=== PATIENT | male | born 1960 | race Caucasian/White ===

== ENCOUNTER 2024-06-26 13:31 | Emergency (ER) | payer MEDICARE ==
[~2024-06-26] VITALS: Ht 188 cm; Wt 131.5 kg
[~2024-06-26 13:31] MED LIST: CEPH500 PO; IBUP800 PO; OXYACE5T PO
[2024-06-26 14:09] VITALS: BP 136/91
[2024-06-26] MEDS ORDERED: CYCL10 PO (15:43)
[2024-06-26] MEDS ORDERED: Cyclobenzaprine HCl 10 MG Tab PO ONE (15:45)
[2024-06-26] MEDS ORDERED: OxyCODONE 5 mg/Acetamin 325 mg TABLET PO ONE (15:45)
[2024-06-26] MEDS ORDERED: Ketorolac Tromethamine 30mg Vial IM ONE (15:45)
== END 2024-06-26 16:17 | disposition home or self-care (01) ==
LOC: ER 13:31
DX: S39.012A Strain of muscle, fascia and tendon of lower back, initial encounter (principal); X58.XXXA Exposure to other specified factors, initial encounter; Z88.5 Allergy status to narcotic agent; Z79.899 Other long term (current) drug therapy
CPT/HCPCS: 96372; 99283-25; A9270; J1885

== ENCOUNTER 2024-07-14 16:20 | Emergency (ER) | payer MEDICARE ==
[~2024-07-14] VITALS: Ht 188 cm; Wt 131.5 kg
[~2024-07-14 16:20] MED LIST changes: +CYCL10 PO
[2024-07-14 17:16] LABS: BASOPHILS ABSOLUTE AUTO 0.07 K/mm3 (0.00-0.23); BASOPHILS PERCENT AUTO 1 % (0-2); EOSINOPHILS ABSOLUTE AUTO 0.21 K/mm3 (0.00-0.68); EOSINOPHILS PERCENT AUTO 2 % (0-6); Hematocrit 44.8 % (37.0-53.0); Hemoglobin 15.2 g/dL (13.5-17.5); IMMATURE GRAN ABSOLUTE AUTO 0.06 K/mm3 (0.00-0.10); IMMATURE GRAN PERCENT AUTO 1 % (0-1); LYMPHOCYTES ABSOLUTE AUTO 1.52 K/mm3 (0.84-5.20); LYMPHOCYTES PERCENT AUTO 13 % (21-46); MONOCYTES ABSOLUTE AUTO 0.85 K/mm3 (0.16-1.47); MONOCYTES PERCENT AUTO 7 % (4-13); Mean Corpuscular HGB 30.8 pg (26.0-34.0); Mean Corpuscular HGB Conc 33.9 g/dL (31.5-36.5); Mean Corpuscular Volume 91 fL (80-100); Mean Platelet Volume 9.8 fL (9.1-12.4); NEUTROPHILS ABSOLUTE AUTO 9.05 K/mm3 (1.96-9.15); NEUTROPHILS PERCENT AUTO 77 % (41-73); Platelet Count 166 K/mm3 (150-400); RDW Coefficient Variation 13.4 % (11.7-14.2); RDW Standard Deviation 44.7 fL (35.1-46.3); Red Blood Cell Count 4.94 M/mm3 (4.30-5.90); White Blood Cell Count 11.76 K/mm3 (4.00-11.30)
[2024-07-14 17:54] LABS: Source, Urine Clean Catch
[2024-07-14 18:01] LABS: Appearance, Urine Hazy (Clear); Bilirubin, Urine Neg (Neg); Blood, Urine 5+ (Neg); Color, Urine Yellow (P-Yellow); Glucose Qualitative, Urine Neg (Neg); Ketones, Urine Neg (Neg); Leukocyte Esterase, Urine Neg (Neg); Nitrite, Urine Neg (Neg); Protein, Urine 2+ (Neg); Specific Gravity, Urine 1.025 (1.003-1.022); Urobilinogen, Urine NORM (Normal)
[2024-07-14 18:08] LABS: Albumin, Blood 3.4 g/dL (3.4-5.0); Albumin/Globulin Ratio 0.8 (0.8-1.8); Bilirubin, Total 0.6 mg/dL (0.1-1.0); Bun/Creatinine Ratio 15.7 (12.0-20.0); Calcium, Blood 9.7 mg/dL (8.5-10.1); Creatinine, Blood 1.02 mg/dL (0.60-1.20); Globulin, Blood 4.1 g/dL (2.2-4.0); Potassium, Blood 4.1 mmol/L (3.5-5.5); Total Protein, Blood 7.5 g/dL (6.4-8.2)
[2024-07-14 18:10] LABS: Bacteria Few /hpf; Red Blood Cells, Urine 25-50 /hpf (0-2); Squamous Epithelial Cells Rare /hpf (Few)
[2024-07-14] MEDS ORDERED: Dicyclomine HCl 20 MG Tab PO ONE (21:30)
[2024-07-14] MEDS ORDERED: Lidocaine 4% 1 Patch TOP ONE (21:30)
[2024-07-14] MEDS ORDERED: LIDO700A20 TOP (21:55)
[2024-07-14 23:25] LABS: Prothrombin Time Results 50.1 Sec (9.7-11.5)
[2024-07-14 23:26] LABS: International Normalized Ratio 5.3
[2024-07-14 23:30] VITALS: BP 130/85
== END 2024-07-14 23:46 | disposition home or self-care (01) ==
LOC: ER 16:20
PROVIDERS: Emergency Medicine; Physician Assistant
DX: R10.30 Lower abdominal pain, unspecified (principal); R31.9 Hematuria, unspecified; R79.1 Abnormal coagulation profile; K40.20 Bilateral inguinal hernia, without obstruction or gangrene, not specified as recurrent; K57.30 Diverticulosis of large intestine without perforation or abscess without bleeding; Z86.718 Personal history of other venous thrombosis and embolism; Z79.01 Long term (current) use of anticoagulants
CPT/HCPCS: 74177; 80053; 81001; 85025; 85610; 85730; 99284-25; A9270; Q9967

== ENCOUNTER → 2025-06-23 | Outpatient (CLI) | payer MEDICARE ==
[~2025-06-23] MED LIST changes: +LIDO700A20 TOP
[2025-06-23 14:00] LABS: Prothrombin Time Results 19.9 Sec (9.7-11.5)
== END ==
LOC: LAB SHORT 12:28 → LAB 12:28
PROVIDERS: Nurse Practitioner
DX: H11.32 Conjunctival hemorrhage, left eye (principal); Z79.01 Long term (current) use of anticoagulants; R79.1 Abnormal coagulation profile
CPT/HCPCS: 85610; 85730